=== PATIENT | female | born 1975 | race Caucasian/White ===

== ENCOUNTER 2017-08-04 04:55 | Inpatient (IN) | payer OTHER ==
[2017-07-26 11:50] VITALS: BMI 36.8
[2017-08-04] MEDS ORDERED: ROPIVACAINE HCL 0.5% 30ML VIAL ONE (07:17)
[2017-08-04] MEDS ORDERED: DEXAMETHASONE SOD PHOSPHATE/PF 10 MG/ML SDV ONE (07:17)
[2017-08-04] MEDS ORDERED: MIDAZOLAM HCL 2 MG/2 ML SINGLE DOSE VIAL ONE ×2 (07:22)
[2017-08-04] MEDS ORDERED: VASOPRESSIN 20 UNITS/ML VIAL IV ONE (08:09)
--- NOTE | 2017-08-04 08:16 | HP ---
Admitting History and Physical - Admission Chief Complaint: Fibroid uterus History of Present Illness: 41 yo Para 0, with history of infertility and fibroid uterus is pre op for abdominal myomectomy. History Source: Patient Limitations to Obtaining History: No Limitations - Past Medical History ...LMP: 07/21/17 ...: No ...: 0 ...Para: 0 - Past Surgical History Past Surgical History: Yes: None - Smoking History Smoking history: Never smoked Have you smoked in the past 12 months: No - Alcohol/Substance Use Hx Alcohol Use: No History of Substance Use: reports: None - Social History Usual Living Arrangement: Yes: With Spouse Home Medications - Allergies Allergies/Adverse Reactions: Allergies Allergy/AdvReac Type Severity Reaction Status Date / Time No Known Allergies Allergy Verified 07/26/17 11:40 - Home Medications Home Medications: Ambulatory Orders NK [No Known Home Medication] 07/26/17 Family Disease History - Family Disease History Family History: Unremarkable Review of Systems - Review of Systems Constitutional: reports: No Symptoms Eyes: reports: No Symptoms HENT: reports: No Symptoms Neck: reports: No Symptoms Cardiovascular: reports: No Symptoms Respiratory: reports: No Symptoms Genitourinary: reports: No Symptoms Breasts: reports: No Symptoms Reported Musculoskeletal: reports: No Symptoms Integumentary: reports: No Symptoms Neurological: reports: No Symptoms Endocrine: reports: No Symptoms Hematology/Lymphatic: reports: No Symptoms Psychiatric: reports: No Symptoms Pain Intensity: 0 Physical Examination Vital Signs: Vital Signs Temperature 98.0 F 08/04/17 07:40 Pulse Rate 94 H 08/04/17 07:40 Respiratory Rate 20 08/04/17 07:40 Blood Pressure 147/80 08/04/17 07:40 O2 Sat by Pulse Oximetry (%) 100 08/04/17 07:52 Constitutional: Yes: Well Nourished Eyes: Yes: Conjunctiva Clear HENT: Yes: Atraumatic Neck: Yes: Supple Cardiovascular: Yes: Regular Rate and Rhythm Respiratory: Yes: Regular, CTA Bilaterally Gastrointestinal: Yes: Normal Bowel Sounds Breast(s): Yes: WNL Musculoskeletal: Yes: WNL Extremities: Yes: WNL Neurological: Yes: Alert, Oriented Problem List - Problems (1) Leiomyoma of uterus Code(s): D25.9 - LEIOMYOMA OF UTERUS, UNSPECIFIED Qualifiers: Uterine leiomyoma location: intramural Qualified Code(s): D25.1 - Intramural leiomyoma of uterus Assessment/Plan Leiomyoma of the uterus Pre op for abdominal hysterectomy Consent signed Anesthesia to see patient
[2017-08-04] MEDS ORDERED: ceFAZolin SODIUM 1 GM VIAL IVPB ONE (08:40)
[2017-08-04] MEDS ORDERED: IBUPROFEN 800 MG/8 ML IJ IVPB PRN (10:28)
[2017-08-04] MEDS ORDERED: oxyCODONE HCL 5 MG TABLET PO PRN ×2 (10:28→10:37)
[2017-08-04] MEDS ORDERED: DEXTROSE 5%-LACTATED RINGERS 1,000 ML IV SCH (10:30)
--- NOTE | 2017-08-04 10:31 | OP ---
Operative Note - Note: Operative Date: 08/04/17 Pre-Operative Diagnosis: Leiomyoma of the uterus Operation: Abdominal myomectomy Findings: Pelvic adhesion Adenomyosis Post-Operative Diagnosis: Other Surgeon: Tamiko Mueller Entry Rep: Barby Mcqueen Anesthesia: General Specimens Removed: Myoma Estimated Blood Loss (mls): 300
[2017-08-04] MEDS ORDERED: PROMETHAZINE HCL 25 MG/1 ML VIAL IVPUSH PRN ×2 (10:37→10:38)
[2017-08-04] MEDS ORDERED: ONDANSETRON 4 MG/2 ML VIAL IVPUSH PRN (10:37)
[2017-08-04] MEDS ORDERED: LACTATED RINGERS SOLUTION 1,000 ML IV SCH (10:45)
[2017-08-04] MEDS ORDERED: HYDROmorphone *PCA* 10MG/50ML DISP.SYRIN PCA SCH (10:45)
[2017-08-04] MEDS ORDERED: HYDROmorphone *PCA* 10MG/50ML DISP.SYRIN PCA ONE (11:13)
--- NOTE | 2017-08-05 07:35 | PN ---
Progress Note (SOAP) - Subjective Chief Complaint: Pt with c/o abd pain and gas - Current Medications Current Medications: Active Medications Fentanyl (Sublimaze Injection -) 50 mcg IVPUSH [id number] PRN PRN Reason: PAIN Last Admin: 08/04/17 11:15 Dose: 50 mcg Hydromorphone HCl (Dilaudid Dobby Looms Pegger -) 0 mg SPECIAL OFFICER SPECIAL OFFICER CHARITY PRN Reason: Protocol Stop: 08/11/17 10:41 Last Admin: 08/04/17 11:30 Dose: 10 mg Dextrose/Lactated Ringer's (D5-Lr -) 1,000 mls @ 125 mls/hr IV ASDIR CHARITY Last Admin: 08/04/17 11:30 Dose: 500 mls Lactated Ringer's (Lactated Ringers Solution) 1,000 mls @ 75 mls/hr IV ASDIR CHARITY Ibuprofen (Caldolor Injection -) 800 mg IVPB Q8H PRN PRN Reason: FEVER Ondansetron HCl (Zofran Injection) 4 mg IVPUSH Q6H PRN PRN Reason: NAUSEA AND/OR VOMITING Oxycodone HCl (Roxicodone -) 5 mg PO Q4H PRN PRN Reason: PAIN Oxycodone HCl (Roxicodone -) 5 mg PO Q4H PRN PRN Reason: MILD PAIN Stop: 08/05/17 10:36 Promethazine HCl (Phenergan Injection -) 12.5 mg IVPUSH Q6H PRN PRN Reason: NAUSEA-FOR RESCUE AFTER 15 MIN Promethazine HCl (Phenergan Injection -) 12.5 mg IVPUSH Q4H PRN PRN Reason: NAUSEA AND/OR VOMITING - Objective Vital Signs: Vital Signs Temperature 98.5 F 08/05/17 05:45 Pulse Rate 101 H 08/05/17 05:45 Respiratory Rate 20 08/05/17 05:45 Blood Pressure 126/91 08/05/17 05:45 O2 Sat by Pulse Oximetry (%) 97 08/04/17 21:35 Constitutional: Yes: Well Nourished, No Distress Gastrointestinal: Yes: WNL, Soft, Abdomen, Obese, Distention Breast(s): Yes: WNL Musculoskeletal: Yes: WNL Extremities: Yes: WNL Peripheral Pulses WNL: No Edema: No Wound/Incision: Yes: Clean/Dry, Well Approximated Neurological: Yes: WNL, Alert, Oriented Problem List - Problems (1) H/O myomectomy Code(s): Z98.890 - OTHER SPECIFIED POSTPROCEDURAL STATES Assessment/Plan SP myomectomy POD 1 gas pain Plan 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
[2017-08-05] MEDS ORDERED: oxyCODONE HCL 5 MG TABLET PO PRN (08:54)
--- NOTE | 2017-08-05 08:54 | PN ---
Progress Note (short form) - Note Progress Note: POD #1 - s/p myomectomy under general anesthesia with dilaudid COCKTAIL WAITRESS for postop pain management. VSS. Pt. doing well, resting comfortably in bed. No complaints. Good pain control. COCKTAIL WAITRESS discontinued and oxycodone 5mg ordered by pediatric allergist. Will order oxycodone 10mg prn as well. No apparent anesthetic complications noted. Continue current care.
[2017-08-05] MEDS: SIMETHICONE 80 MG TAB.CHEW (FP) PO PRN ×3 (09:06→20:03)
[2017-08-05] MEDS: IBUPROFEN 600 MG TABLET (FP) PO PRN ×4 (09:06→20:03)
[2017-08-05] MEDS: ACETAMINOPHEN 325 MG TABLET (FP) PO PRN ×3 (09:07→20:03)
[2017-08-05 09:33] LABS: BASO % 0.3 % (0-2.0); EOS % 0.1 % (0-4.5); HEMATOCRIT 32.3 % (32.4-45.2); HEMOGLOBIN 10.3 GM/dL (10.7-15.3); LYMPH % 21.5 % (8-40); MCH 27.9 pg (25.7-33.7); MEAN CELL VOLUME 87.3 fl (80-96); MEAN PLT VOLUME 7.8 fl (7.5-11.1); NEUT % 70.1 % (42.8-82.8); PLATELET COUNT 269 K/MM3 (134-434); RDW 13.7 % (11.6-15.6)
[2017-08-05] MEDS ORDERED: BACITRACIN 15 GM TUBE TOPICAL OINTMENT TP PRN (09:57)
[2017-08-05 10:40] LABS: URINE APPEARANCE CLEAR; URINE BILIRUBIN NEGATIVE (NEGATIVE); URINE BLOOD 3+ (NEGATIVE); URINE COLOR STRAW; URINE GLUCOSE (UA) NEGATIVE (NEGATIVE); URINE KETONE NEGATIVE (NEGATIVE); URINE LEUK ESTERASE NEGATIVE (NEGATIVE); URINE NITRITE NEGATIVE (NEGATIVE); URINE PROTEIN NEGATIVE (NEGATIVE); URINE UROBILINOGEN NEGATIVE mg/dL (0.2-1.0)
[2017-08-05 11:49] LABS: EPI CELLS RARE /HPF (FEW); URINE MUCUS RARE
[2017-08-05] MEDS ORDERED: PCA PUMP KEY 1 EACH EACH ONE (16:23)
[2017-08-06] MEDS: SIMETHICONE 80 MG TAB.CHEW (FP) PO PRN ×2 (06:15→11:21)
[2017-08-06] MEDS: IBUPROFEN 600 MG TABLET (FP) PO PRN ×2 (06:16→11:21)
[2017-08-06] MEDS: ACETAMINOPHEN 325 MG TABLET (FP) PO PRN ×2 (06:16→11:22)
[2017-08-06 08:18] VITALS: BP 139/92; PULSE 87; TEMP 97.7
--- NOTE | 2017-08-06 11:05 | DS ---
Physical Examination Vital Signs: Vital Signs Temperature 97.7 F 08/06/17 08:10 Pulse Rate 87 08/06/17 08:10 Respiratory Rate 20 08/06/17 08:10 Blood Pressure 139/92 08/06/17 08:10 O2 Sat by Pulse Oximetry (%) 88 L 08/05/17 10:00 Constitutional: Yes: Well Nourished, No Distress, Calm Eyes: Yes: Conjunctiva Clear, EOM Intact HENT: Yes: Atraumatic, Normocephalic Neck: Yes: Supple, Trachea Midline Cardiovascular: Yes: Regular Rate and Rhythm Respiratory: Yes: Regular, CTA Bilaterally Gastrointestinal: Yes: Normal Bowel Sounds, Soft Extremities: Yes: WNL Edema: No Wound/Incision: Yes: Clean/Dry, Well Approximated, Steri Strips Neurological: Yes: Alert, Oriented Psychiatric: Yes: Alert, Oriented Labs: CBC, BMP 08/05/17 09:00 Discharge Summary Reason For Visit: LEIOMYOMA OF UTERUS Current Active Problems H/O myomectomy (Acute) Leiomyoma of uterus (Acute) Condition: Good - Instructions Referrals: Tamiko Mueller MD [Staff Physician] - 2 Weeks Disposition: HOME - Home Medications Comprehensive Discharge Medication List: Ambulatory Orders NK [No Known Home Medication] 07/26/17
[2017-08-06] MEDS ORDERED: SENNOSIDES 8.6MG TABLET (FP) PO ONE (11:30)
[2017-08-06] MEDS ORDERED: BISACODYL 10 MG SUPP.RECT RC ONE (11:30)
--- NOTE | 2017-08-07 15:57 | PATH ---
Surgical Pathology Report Patient Name: CITLALY CASTLE [facility]. Rec. #: [id number] /Age/Gender: 1975 (Age: 41) / F Account: [id number] Location: [facility] OBS/RN NEONATAL Taken: 08/04/2017 Received: 08/04/2017 Reported: 08/07/2017 Physicians: Tamiko Mueller M.D. Specimen(s) Received FIBROIDS Clinical History Fibroid uterus, infertility, leiomyoma of the uterus Final Diagnosis UTERUS, FIBROIDS, MYOMECTOMY: FRAGMENTS OF SMOOTH MUSCLE CONSISTENT WITH LEIOMYOMA(TA). ADENOMYOSIS. Electronically Signed Reema Gonzales M.D. Gross Description Received in formalin labeled "fibroids," is a 16 g aggregate of 3 otero, rubbery nodules averaging 2.4 cm in greatest dimension. Sectioning reveals otero, firm to rubbery parenchyma with whorled architecture. No areas of hemorrhage or necrosis are identified. Load Manager sections are submitted in 3 cassettes. /08/04/2017 saudi/08/04/2017
== END 2017-08-06 18:00 | disposition home or self-care (01) | DRG 519 ==
LOC: JASUSAT 04:55 → JSAMEDAYSX 10:24 → J3W 15:47
PROVIDERS: ADMIT Obstetrics & Gynecology; ATTEND Obstetrics & Gynecology
DX: D25.1 Intramural leiomyoma of uterus (principal); K66.0 Peritoneal adhesions (postprocedural) (postinfection); N97.9 Female infertility, unspecified
CPT/HCPCS: 36415; 81003; 81015; 84703; 85025; 86850; 86900; 86901; 87086; 88305-TC; 94010; 94760

== ENCOUNTER 2019-04-05 00:27 | Emergency (ER) | payer OTHER ==
[2019-04-05 01:06] VITALS: TEMP 97.7; BMI 33.5
[2019-04-05] MEDS ORDERED: ACETAMINOPHEN 1000 MG/100 ML VIAL (NON FORMULARY) IVPB ONE (01:12)
[2019-04-05] MEDS ORDERED: SODIUM CHLORIDE 1,000 ML IV STA (01:12)
--- NOTE | 2019-04-05 01:12 | PDOC ---
History of Present Illness - General Chief Complaint: Pain, Acute Stated Complaint: ABD PAIN Time Seen by Provider: 04/05/19 00:46 History Source: Patient Exam Limitations: Language Barrier - History of Present Illness Initial Comments: Sachi Adams is a 43 yo obese F w a pmh of HTN, myomectomy, and constipation who presents to the [facility] er via private auto with LLQ abdominal pain. Patient states her LLQ abdominal pain has been worsening for the past 3 days and now it is an 8/10. Patient states her pain feels like a burning sensation and her entire LLQ of her abdomen feels warm. Last bowel movement was yesterday and it was normal. Patient endorses chronic constipation. She states that lying flat makes her pain feel better and sitting up or walking makes the pain worse. Denies any nausea, vomiting, or diarrhea. Denies any dysuria, frequency, urgency , denies radiation to groin or back. LMP: 03/25 PCP: Cameron Grier PSH: Myomectomy Social Hx: Denies smoking, drinking, or other substance usage. Allergies: NKA, NKDA Past History - Past Medical History Allergies/Adverse Reactions: Allergies Allergy/AdvReac Type Severity Reaction Status Date / Time No Known Allergies Allergy Verified 04/05/19 00:45 Home Medications: Ambulatory Orders Docusate Sodium [Colace] 100 mg PO BID PRN #30 capsule 08/06/17 Ibuprofen [Motrin -] 600 mg PO QID PRN #28 tablet 08/06/17 COPD: No GI Disorders: Yes HTN: Yes - Suicide/Smoking/Psychosocial Hx Smoking History: Never smoked Have you smoked in the past 12 months: No Hx Alcohol Use: No Drug/Substance Use Hx: No Substance Use Type: None Hx Substance Use Treatment: No Review of Systems - Review of Systems Able to Perform ROS?: Yes Comments:: CONSTITUTIONAL: Present: Chills Absent: fever, no fatigue EYES: Absent: visual changes ENT: Absent: ear pain, no sore throat CARDIOVASCULAR: Absent: chest pain, no palpitations RESPIRATORY: Absent: cough, no SOB GI: Present: Abdominal pain, constipation Absent: no nausea, no vomiting, no diarrhea GENITOURINARY: Absent: dysuria, no frequency, no hematuria MUSKULOSKELETAL: Absent: back pain, no arthralgia, no myalgia SKIN: Absent: rash NEURO: Absent: headache *Physical Exam - Vital Signs Last Vital Signs Temp Pulse Resp BP Pulse Ox 97.7 F 106 H 20 149/102 H 99 04/05/19 00:45 04/05/19 00:45 04/05/19 00:45 04/05/19 00:45 04/05/19 00:45 - Physical Exam Comments: GENERAL: Well-appearing, well-nourished. Moderate distress. HEENT: Normocephalic, atraumatic. PERRL, EOM intact. CARDIOVASCULAR: Tachycardic rate. Normal S1, S2. Regular rhythm. PULMONARY: No evidence of respiratory distress. Lungs clear to auscultation bilaterally. No wheezing, rales or rhonchi. ABDOMEN: There is significant LLQ TTP. The left lower quadrant of the patient's abdomen feels warm. There is also suprapubic TTP. The abdomen is soft with normal bowel sounds, no rebound, no guarding. EXTREMITIES: Normal ROM in all four extremities. No gross deformities. SKIN: Warm, dry. No rash NEUROLOGICAL: No focal neurological deficits. Female Pelvic Exam: positive: normal external exam, cervical os closed, adnexal tenderness (Left sided). negative: normal adnexa, normal size ovaries, CMT, discharge, lesions, Bartholin mass, Scalene Gland, vaginal bleeding ED Treatment Course - LABORATORY CBC & Chemistry Diagram: 04/05/19 01:28 04/05/19 01:28 - RADIOLOGY Radiograph Interpretation: Pelvic US: Heterogeneous nonspecific enlargement of the uterine myometrium most likely due to fibroids and other uterine masses cannot be excluded. If clinically indicated follow-up outpatient evaluation may be needed. Left ovary nonspecific complex septated cystic and solid mass measures approximately 17 x 15 x 9 cm may be due to a benign or malignant left ovarian mass such as a serous cystadenoma or serous cystadenocarcinoma without evidence of torsion. If clinically indicated a follow-up outpatient BLACKSM[facility] HELPER consultation may be needed. HISTORY: 43-Year-Old Female With Left Lower Quadrant Abdominal Pain Assess For Torsion Previous History Of a Right Ovarian Cyst Identified On October 13, 2018 And Previous History Of a Fibroid Identified. COMPARISON: None. FINDINGS: Nonspecific 10.1 x 9.4 x 10.1 cm complex heterogeneous cystic and solid mass of the right ovary may be benign or malignant. The right ovary measures 15.9 x 11.1 x 13.1 cm. The uterus measures 11.1 x 6.2 x 7.6 cm. Mild nonspecific 1.3 cm thickening of the endometrium. Nonspecific heterogeneous 4 x 3.7 x 4.3 cm mass in the uterine myometrium most likely represents a fibroid and other uterine masses including malignancy cannot be excluded. Limited exam with nonvisualization of the left ovary Cannot exclude left ovarian pathology. COLOR DUPLEX: There is satisfactory perfusion to both the right ovarian mass with normal appearing arterial and venous spectral waveforms. IMPRESSION: Limited exam with nonvisualization of the left ovary. No evidence of right ovarian torsion. Nonspecific complex heterogeneous cystic and solid mass of the right ovary may be benign or malignant. If clinically indicated a follow-up outpatient [facility]SM[facility] HELPER consultation may be needed. Mild nonspecific 1.3 cm thickening of the endometrium. Nonspecific heterogeneous 4 x 3.7 x 4.3 cm mass in the uterine myometrium most likely represents a fibroid and other uterine masses including malignancy cannot be excluded. If clinically indicated further evaluation and workup may be needed. CTAP: FINDINGS: Lack of oral contrast limits this exam. Basilar atelectasis. Liver gallbladder pancreas spleen adrenal glands and left kidney appear unremarkable. 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 No nephrolithiasis or hydronephrosis. Lack of oral contrast limits this exam. Nonoral contrast evaluation stomach small bowel and appendix appear unremarkable. Diverticulosis without diverticulitis. The right ovary appears unremarkable. Heterogeneous nonspecific enlargement of the uterine myometrium most likely due to fibroids and other uterine masses cannot be excluded. Left ovary nonspecific complex septated cystic and solid mass measures approximately 17 x 15 x 9 cm may be due to a benign or malignant left ovarian mass such as a serous cystadenoma or serous cystadenocarcinoma without evidence of torsion. No free air. No free fluid. No abscess. Mild degenerative disc disease. Subcutaneous adipose tissue is incompletely included within the [id number]. IMPRESSION: Heterogeneous nonspecific enlargement of the uterine myometrium most likely due to fibroids and other uterine masses cannot be excluded. If clinically indicated follow-up outpatient evaluation may be needed. Left ovary nonspecific complex septated cystic and solid mass measures approximately 17 x 15 x 9 cm may be due to a benign or malignant left ovarian mass such as a serous cystadenoma or serous cystadenocarcinoma without evidence of torsion. If clinically indicated a follow-up outpatient [facility] HELPER consultation may be needed. 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 Medical Decision Making - Medical Decision Making Sachi Adams is a 43 yo obese F w a pmh of HTN, myomectomy, and constipation who presents to the [facility] er via private auto with LLQ abdominal pain. Patient states her LLQ abdominal pain has been worsening for the past 3 days and now it is an 8/10. Patient states her pain feels like a burning sensation and her entire LLQ of her abdomen feels warm. Last bowel movement was yesterday and it was normal. Patient endorses chronic constipation. She states that lying flat makes her pain feel better and sitting up or walking makes the pain worse. Denies any nausea, vomiting, or diarrhea. Denies any dysuria, frequency, urgency , denies radiation to groin or back. LMP: 03/25 Vital Signs Temp Pulse Resp BP Pulse Ox 97.7 F 106 H 20 149/102 H 99 04/05/19 00:45 04/05/19 00:45 04/05/19 00:45 04/05/19 00:45 04/05/19 00:45 DDx IBNLT: Pregnanci - IUP vs ectopic, Ovarian torsion vs cyst/rupture, SBO, diverticulitis, abdominal abscess, renal colic, UTI/Pylo, electrolyte/metabolic disturbance Plan: Labs, Urine, TVUS, CTAP, analgesia, IV hydration, NPO, re-assess. Labs: Remarkable for low potassium of 2.9 - will replete orally. Urine: Unremarkable. TVUS: Left ovary nonspecific complex septated cystic and solid mass measures approximately 17 x 15 x 9 cm may be due to a benign or malignant left ovarian mass such as a serous cystadenoma or serous cystadenocarcinoma without evidence of torsion. CTAP: IMPRESSION: Heterogeneous nonspecific enlargement of the uterine myometrium most likely due to fibroids and other uterine masses cannot be excluded. If clinically indicated follow-up outpatient evaluation may be needed. Left ovary nonspecific complex septated cystic and solid mass measures approximately 17 x 15 x 9 cm may be due to a benign or malignant left ovarian mass such as a serous cystadenoma or serous cystadenocarcinoma without evidence of torsion. If clinically indicated a follow-up outpatient [facility] HELPER consultation may be needed. Re-assessment: Patient states she is no longer in pain after analgesic meds. Patient feels well and requests to be [place]'ed. Disposition: Home with OB follow up *DC/Admit/Observation/Transfer Diagnosis at time of Disposition: Ovarian mass, left - Discharge Dispostion Disposition: HOME Condition at time of disposition: Improved Decision to Admit order: No - Referrals Referrals: Michael Grier MD [Primary Care Provider] - Doris Up MD [Staff Physician] - - Patient Instructions Printed Discharge Instructions: Ovarian Cyst, Ovarian Cyst Removal -- Open Surgery Additional Instructions: You came into the ER with Abdominal pain. We did an ultrasound and cat scan which showed you have a large mass on your ovary. We handed you a copy of the US and CAT scan reports. YOU MUST CALL UP DR. UP - YOUR OB DOCTOR - TOMORROW AND SCHEDULE A FOLLOW UP APPOINTMENT TO TALK ABOUT THIS MASS IN YOUR OVARY. COME BACK TO THE ER IMMEDIATELY IF YOUR PAIN RETURNS OR YOU HAVE ANY OTHER NEW OR WORSENING CONCERNS. Print Language: MOLDOVAN - Post Discharge Activity
[2019-04-05] MEDS ORDERED: ACETAMINOPHEN INJECTION 100 ML IVPB ONE (01:18)
[2019-04-05 01:43] LABS: EOS % 2.1 % (0-4.5); HEMATOCRIT 38.5 % (32.4-45.2); HEMOGLOBIN 12.8 GM/dL (10.7-15.3); LYMPH % 36.7 % (8-40); MCH 28.5 pg (25.7-33.7); MCHC 33.2 g/dl (32.0-36.0); MEAN CELL VOLUME 85.8 fl (80-96); MEAN PLT VOLUME 8.7 fl (7.5-11.1); MONO % 7.6 % (3.8-10.2); NEUT % 52.6 % (42.8-82.8); PLATELET COUNT 267 K/MM3 (134-434); RBC 4.49 M/mm3 (3.60-5.2); RDW 13.3 % (11.6-15.6); WHITE BLOOD COUNT 5.9 K/mm3 (4.0-10.0)
[2019-04-05 01:47] LABS: URINE APPEARANCE CLEAR; URINE BILIRUBIN NEGATIVE (NEGATIVE); URINE COLOR YELLOW; URINE GLUCOSE (UA) NEGATIVE (NEGATIVE); URINE KETONE 1+ (NEGATIVE); URINE LEUK ESTERASE NEGATIVE (NEGATIVE); URINE NITRITE NEGATIVE (NEGATIVE); URINE PROTEIN NEGATIVE (NEGATIVE); URINE UROBILINOGEN 0.2 mg/dL (0.2-1.0)
[2019-04-05 01:56] LABS: INR 1.08 (0.83-1.09); PROTHROMBIN TIME (PATIENT) 12.7 SEC (9.7-13.0)
[2019-04-05 02:09] LABS: ALBUMIN 3.6 g/dl (3.4-5.0); BILIRUBIN,TOTAL 0.6 mg/dL (0.2-1); BLOOD UREA NITROGEN 6.6 mg/dL (7-18); CREATININE 0.7 mg/dL (0.55-1.3); TOT PROT 6.4 g/dl (6.4-8.2)
[2019-04-05 02:11] LABS: POTASSIUM 2.9 mmol/L (3.5-5.1)
[2019-04-05] MEDS ORDERED: POTASSIUM CHLORIDE TABS 20 MEQ TABLET.ER (FP) PO ONE ×2 (02:13→02:19)
[2019-04-05 02:30] VITALS: BP 158/98; PULSE 75
--- NOTE | 2019-04-05 03:16 | PDOC ---
Attending Attestation - Resident Resident Name: Duane Chadwick - ED Attending Attestation I have performed the following: I have examined & evaluated the patient, The case was reviewed & discussed with the resident, I agree w/resident's findings & plan, Exceptions are as noted - HPI HPI: 04/05/19 08:09 43F pmh HTN, s/p myomectomy here with LLQ abd px, progressive over 3 days. Px is burning, localized to LLQ, 03/09. No n/v,d/c, dysuria, urgency, frequency. - Physicial Exam PE: 04/05/19 08:14 Agree with exam as documented by resident - Medical Decision Making 04/05/19 08:14 LLQ consider torsion, ectopic, colitis fu labs, imaging large ovarian mass will f/u with science faculty member
--- NOTE | 2019-04-05 14:01 | EKG ---
Test Reason : Blood Pressure : / mmHG Vent. Rate : 063 BPM Atrial Rate : 063 BPM P-R Int : 150 ms QRS Dur : 082 ms QT Int : 404 ms P-R-T Axes : 058 -29 -03 degrees QTc Int : 413 ms NORMAL SINUS RHYTHM NONSPECIFIC ST ABNORMALITY WHEN COMPARED WITH ECG OF 26-JUL-2017 11:26, NO SIGNIFICANT CHANGE WAS FOUND Confirmed by VIDAL GALEANO MD ([id number]) on 04/05/2019 2:01:16 PM Referred By: Confirmed By:VIDAL GALEANO MD
== END 2019-04-05 04:27 | disposition home or self-care (01) ==
LOC: JER 00:27
PROC: 3E033NZ Introduction of Analgesics, Hypnotics, Sedatives into Peripheral Vein, Percutaneous Approach (ICD-10-PCS; principal; 2019-04-05)
PROC: 3E0337Z Introduction of Electrolytic and Water Balance Substance into Peripheral Vein, Percutaneous Approach (ICD-10-PCS; 2019-04-05)
DX: R10.9 Unspecified abdominal pain (principal)
CPT/HCPCS: 36415; 74177-TC; 76830-TC; 80053; 81003; 83605; 83690; 84703; 85025; 85610; 86850; 86900; 86901; 87086; 87186; 93005; 93010; 96361; 96374; 99283-25; J0131; J7030

== ENCOUNTER 2020-10-03 09:19 | Emergency (ER) | payer OTHER ==
[2020-10-03 09:30] VITALS: BMI 34.3
[2020-10-03] MEDS ORDERED: ACETAMINOPHEN 1000 MG/100 ML VIAL (NON FORMULARY) IVPB ONE (10:01)
[2020-10-03] MEDS ORDERED: SODIUM CHLORIDE 0.9% 500 ML INFUS.BAG IV ONE (10:01)
[2020-10-03] MEDS ORDERED: ACETAMINOPHEN INJECTION 100 ML IVPB ONE (10:11)
[2020-10-03 10:37] LABS: BASO % 0.6 % (0-2.0); EOS % 1.4 % (0-4.5); HEMATOCRIT 34.5 % (32.4-45.2); HEMOGLOBIN 11.9 GM/dL (10.7-15.3); LYMPH % 25.9 % (8-40); MCH 29.1 pg (25.7-33.7); MCHC 34.5 g/dl (32.0-36.0); MEAN CELL VOLUME 84.3 fl (80-96); MEAN PLT VOLUME 7.2 fl (7.5-11.1); MONO % 8.7 % (3.8-10.2); NEUT % 63.4 % (42.8-82.8); PLATELET COUNT 544 K/MM3 (134-434); RDW 13.6 % (11.6-15.6); WHITE BLOOD COUNT 8.2 K/mm3 (4.0-10.0)
[2020-10-03 10:47] LABS: INR 1.26 (0.83-1.09); PROTHROMBIN TIME (PATIENT) 15.1 SEC (9.7-13.0)
[2020-10-03 10:50] LABS: ACTIVATED PTT 28.4 SECONDS (25.2-36.5)
[2020-10-03 10:56] LABS: POTASSIUM 3.4 mmol/L (3.5-5.1)
[2020-10-03 10:58] LABS: BLOOD UREA NITROGEN 4.3 mg/dL (7-18); CALCIUM 9.3 mg/dL (8.5-10.1)
[2020-10-03 10:59] LABS: ALBUMIN 3.4 g/dl (3.4-5.0)
[2020-10-03 11:02] LABS: CREATININE 0.8 mg/dL (0.55-1.3); HCG,QUALITATIVE URINE Negative
[2020-10-03 11:04] LABS: BILIRUBIN,TOTAL 0.5 mg/dL (0.2-1); EPI CELLS 7 /uL (0-25.1); HYALINE CASTS 1 /uL (0-3.1); TOT PROT 7.5 g/dl (6.4-8.2); URINE APPEARANCE CLEAR; URINE BACTERIA 6201 /uL (0-1359); URINE BILIRUBIN NEGATIVE (NEGATIVE); URINE COLOR YELLOW; URINE GLUCOSE (UA) NEGATIVE (NEGATIVE); URINE KETONE NEGATIVE (NEGATIVE); URINE LEUK ESTERASE TRACE (NEGATIVE); URINE NITRITE NEGATIVE (NEGATIVE); URINE PROTEIN NEGATIVE (NEGATIVE); URINE RBC 35 /uL (0-23.9); URINE UROBILINOGEN 0.2 mg/dL (0.2-1.0); URINE WBC 1563 /uL (0-25.8)
[2020-10-03 15:08] VITALS: TEMP 98
[2020-10-03] MEDS ORDERED: DICYCLOMINE HCL 10 MG/5 ML PO PRN (16:37)
[2020-10-03 16:46] VITALS: BP 130/74; PULSE 78
== END 2020-10-03 16:44 | disposition home or self-care (01) ==
LOC: JER 09:19
PROC: 3E033NZ Introduction of Analgesics, Hypnotics, Sedatives into Peripheral Vein, Percutaneous Approach (ICD-10-PCS; principal; 2020-10-03)
DX: D25.9 Leiomyoma of uterus, unspecified (principal); R10.84 Generalized abdominal pain
CPT/HCPCS: 36415; 74177-TC; 80053; 81003; 83690; 84703; 85025; 85610; 85730; 87086; 99285-25; J0131; Q9967

== ENCOUNTER 2021-02-15 14:50 | Emergency (ER) | payer OTHER ==
[2021-02-15 15:01] VITALS: BP 163/93; PULSE 69; TEMP 98.5; BMI 35.6
[2021-02-15] MEDS ORDERED: KETOROLAC TROMETHAMINE 60 MG/2 ML VIAL IM ONE (16:11)
[2021-02-15] MEDS ORDERED: KETOROLAC TROMETHAMINE 15 MG/ML VIAL ONE (16:58)
== END 2021-02-15 17:11 | disposition home or self-care (01) ==
LOC: JERFT 14:50
PROC: 3E0233Z Introduction of Anti-inflammatory into Muscle, Percutaneous Approach (ICD-10-PCS; principal; 2021-02-15)
DX: K08.89 Other specified disorders of teeth and supporting structures (principal)
CPT/HCPCS: 99284-25

== ENCOUNTER 2022-04-01 13:15 | Emergency (ER) | payer OTHER ==
[2022-04-01 13:24] VITALS: BP 126/82; PULSE 84; RESP 18; TEMP 97.2; BMI 39.8
[2022-04-01 14:59] LABS: BASO % 1.2 % (0-2.0); EOS % 2.4 % (0-4.5); HEMATOCRIT 40.4 % (32.4-45.2); HEMOGLOBIN 13.4 GM/dL (10.7-15.3); LYMPH % 37.5 % (8-40); MCH 27.9 pg (25.7-33.7); MEAN CELL VOLUME 84.3 fl (80-96); MEAN PLT VOLUME 7.9 fl (7.5-11.1); MONO % 7.4 % (3.8-10.2); NEUT % 51.5 % (42.8-82.8); PLATELET COUNT 314 10^3/uL (134-434); WHITE BLOOD COUNT 6.9 K/mm3 (4.0-10.0)
[2022-04-01 15:05] LABS: HCG,QUALITATIVE URINE Negative
[2022-04-01 15:06] LABS: EPI CELLS 8 /uL (0-25.1); HYALINE CASTS 0 /uL (0-3.1); URINE APPEARANCE CLEAR; URINE BACTERIA 25 /uL (0-1359); URINE BILIRUBIN NEGATIVE (NEGATIVE); URINE COLOR ORANGE; URINE GLUCOSE (UA) NEGATIVE (NEGATIVE); URINE KETONE NEGATIVE (NEGATIVE); URINE LEUK ESTERASE NEGATIVE (NEGATIVE); URINE NITRITE NEGATIVE (NEGATIVE); URINE PROTEIN TRACE (NEGATIVE); URINE RBC 1858 /uL (0-23.9); URINE UROBILINOGEN 0.2 mg/dL (0.2-1.0); URINE WBC 11 /uL (0-25.8)
[2022-04-01 15:23] LABS: ALBUMIN 3.6 g/dl (3.4-5.0); BLOOD UREA NITROGEN 13.6 mg/dL (7-18); CALCIUM 9.2 mg/dL (8.5-10.1)
[2022-04-01 15:26] LABS: CREATININE 0.9 mg/dL (0.55-1.3)
[2022-04-01 15:28] LABS: BILIRUBIN,TOTAL 0.4 mg/dL (0.2-1)
== END 2022-04-01 18:46 | disposition home or self-care (01) ==
LOC: JER 13:15 → JERFT 13:15
DX: N93.9 Abnormal uterine and vaginal bleeding, unspecified (principal); D25.9 Leiomyoma of uterus, unspecified
CPT/HCPCS: 36415; 76830-TC; 80053; 81003; 84703; 85025; 87086; 99284-25